=== PATIENT | female | born 1980 | race Caucasian/White ===

== ENCOUNTER → 2016-10-28 | Outpatient (CLI) | payer BC ==
[~2016-10-28] MED LIST: CHOL100010 PO; SPR28 PO
== END | disposition home or self-care (01) ==
LOC: C.PAPS 10:45
PROVIDERS: ATTEND Obstetrics & Gynecology
DX: Z01.411 Encounter for gynecological examination (general) (routine) with abnormal findings (principal); R87.610 Atypical squamous cells of undetermined significance on cytologic smear of cervix (ASC-US); Z87.42 Personal history of other diseases of the female genital tract

== ENCOUNTER 2017-10-14 08:54 | Emergency (ER) | payer BC, OTHER ==
[~2017-10-14] VITALS: Ht 157.5 cm; Wt 65.0 kg
[~2017-10-14 08:54] MED LIST changes: -SPR28 PO
[2017-10-14 08:59] VITALS: TEMP 37; Ht 157.5 cm; Wt 65.0 kg
[2017-10-14] MEDS ORDERED: SODIUM CHLORIDE 0.9% 500ML 500 ML IV STA (09:08)
[2017-10-14] MEDS ORDERED: DiphenhydrAMINE HCL 50 MG/ML VIAL IV STA (09:08)
[2017-10-14] MEDS ORDERED: KETOROLAC TROMETHAMINE 30 MG/ML VIAL IV STA (09:08)
[2017-10-14 09:27] LABS: BASO % 0.3 %; BASO ABS # 0.02 K/uL (0-0.2); EOS % 1.6 %; HEMOGLOBIN 13.8 g/dL (12.0-16.0); IG# 0.01 K/uL (0.00-0.02); LYMPH % 27.9 %; LYMPH ABS # 1.79 K/uL (1.2-3.4); MEAN CELL VOLUME 88.4 fL (80-100); MEAN CORPUSCULAR HEMOGLOBIN 31.3 pg (25-34); MEAN CORPUSCULAR HGB CONC 35.4 g/dl (32-36); MEAN PLATELET VOLUME 9.7 fL (7.4-10.4); MONO % 7.8 %; NEUT % 62.2 %; PLATELET COUNT 228 K/uL (130-400); RED CELL DISTRIBUTION WIDTH CV 12.6 % (11.5-14.5); RED CELL DISTRIBUTION WIDTH SD 40.4 fL (36.4-46.3); WHITE BLOOD COUNT 6.42 K/uL (4.8-10.8)
[2017-10-14 09:41] LABS: CALCIUM 9.4 mg/dl (8.5-10.1); CREATININE 0.8 mg/dl (0.60-1.20); POTASSIUM 3.8 mmol/L (3.5-5.1)
--- NOTE | 2017-10-14 10:08 | DIAGNOSTIC IMAGING REPORT ---
CT SCAN OF THE BRAIN WITHOUT IV CONTRAST CLINICAL HISTORY: Headache. COMPARISON STUDY: MRI of the brain dated 04/19/2015. TECHNIQUE: Unenhanced axial CT scan of the brain is performed from the vertex to the skull base. A dose lowering technique was utilized adhering to the principles of ALARA. CT DOSE: 788.63 mGycm FINDINGS: Brain parenchyma: The brain parenchyma is normal in appearance. There is no hemorrhage, mass effect, or evidence of acute territorial ischemia by CT criteria. Cruz-white matter is preserved. No extra-axial fluid collection is seen. Ventricles, sulci, cisterns: Normal in configuration. Intracranial vasculature: The visualized intracranial vasculature at the skull base is normal in appearance. Calvarium: Unremarkable. Sinuses and mastoids: The visualized paranasal sinuses are clear. There is a right mastoid effusion. The left mastoid air cells are well pneumatized. Orbits: The bony orbits are grossly intact. IMPRESSION: No acute intracranial abnormality. Electronically signed by: Hemant Byrd M.D. 10/14/2017 10:07 AM Dictated Date/Time: 10/14/2017 10:05 AM
[2017-10-14 10:17] VITALS: BP 103/67; PULSE 74; O2SAT 100
[2017-10-14] MEDS ORDERED: SPR28 PO (10:31)
--- NOTE | 2017-10-14 14:23 | EMERGENCY ROOM VISIT NOTE ---
History Report prepared by Alondra: Rito Lema Under the Supervision of: Dr. Paulie Franklin D.O. First contact with patient: 08:57 Stated Complaint: MIGRAINE History of Present Illness The patient is a 37 year old female who presents to the Emergency Room with complaints of worsening dizziness and a headache. The patient experienced the dizziness for the first time two days ago, and she describes the sensation as the "room spinning." The dizziness is worsened with movement, and seems to be improved by looking downward. She has a "dull" pain diffusely across the back of her head, that is accompanied by intermittent "sharp and stabbing" pains. The intermittent sharp and stabbing pains are a 10/10 in severity. She denies any vision changes or new weakness, aside from her chronic MS. this is not the worst headache of her life. Sharp stabbing portion of her headache when it does come does feel like her migraines. Dizziness is only present with a sharp stabbing pain. She does have a history of migraines, but this is different than her usual presentation. Her migraine pain is usually behind her eyes. The severity of intermittent sharp and stabbing pains are consistent with her past episodes. The patient denies any other fevers, chest pain, shortness of breath, nausea, vomiting, diarrhea, pain with urination, and melena. Source of History: patient Onset: Two days ago Position: head Symptom Intensity: 10/10 Quality: sharp, stabbing, dull, other (Dizziness) Timing: constant (dull headache), intermittent (sharp and stabbing headache) , worsening (dizziness) Modifying Factors (Worsening): movement (dizziness) Modifying Factors (Relieving): other (Looking downward) Associated Symptoms: No fevers, No weakness Note: Negative vision symptoms Review of Systems See HPI for pertinent positives & negatives. A total of 10 systems reviewed and were otherwise negative. Past Medical & Surgical Medical Problems: (1) MS (multiple sclerosis) Family History Cancer Diabetes mellitus Heart disease Hypertension Social History Smoking Status: Never Smoker Drug Use: none Marital Status: Housing Status: lives with family Occupation Status: unemployed Current/Historical Medications Scheduled Ethinyl Estrad/Norgestimate (Sprintec 28), 1 TAB PO DAILY Allergies Coded Allergies: Amoxicillin (Verified Adverse Reaction, Intermediate, N/V, 10/14/17) Clavulanic Acid (Verified Adverse Reaction, Intermediate, N/V, 10/14/17) Glatiramer (Verified Adverse Reaction, Intermediate, SYNCOPE, 10/14/17) Mannitol (Verified Adverse Reaction, Intermediate, SYNCOPE, 10/14/17) Physical Exam Vital Signs Date Time Temp Pulse Resp B/P (MAP) Pulse Ox O2 Delivery O2 Flow Rate FiO2 10/14/17 10:17 74 18 103/67 100 10/14/17 08:59 72 10/14/17 08:59 37.0 67 20 136/86 100 Physical Exam GENERAL: Sitting up in bed, alert, well appearing, well nourished, no distress, non-toxic EYE EXAM: normal conjunctiva. PERRL and EOM's intact. No nystagmus OROPHARYNX: no exudate, no erythema, lips, buccal mucosa, and tongue normal and mucous membranes are moist NECK: supple, no nuchal rigidity, no adenopathy, non-tender LUNGS: Clear to auscultation. Normal chest wall mechanics HEART: no murmurs, S1 normal and S2 normal ABDOMEN: abdomen soft, non-tender, normo-active bowel sounds, no masses, no rebound or guarding. BACK: Back is symmetrical on inspection and there is no deformity, no midline tenderness, no CVA tenderness. SKIN: no rashes and no bruising UPPER EXTREMITIES: upper extremities are grossly normal. LOWER EXTREMITIES: No pitting edema. NEURO EXAM: Normal sensorium, cranial nerves II-XII grossly intact, normal speech, no gross weakness of arms, no gross weakness of legs. No drift. Finger to nose intact. Gross sensation intact. No deficit on the left side, right side is weak with grasp, flexion/extension of the upper extremity is diminished, unable to dorsal flex right foot, all old per patient secondary to MS. Medical Decision & Procedures ER Provider Diagnostic Interpretation: Radiology results as stated below per my review and the radiologist's interpretation: CT SCAN OF THE BRAIN WITHOUT IV CONTRAST CLINICAL HISTORY: Headache. COMPARISON STUDY: MRI of the brain dated 04/19/2015. TECHNIQUE: Unenhanced axial CT scan of the brain is performed from the vertex to the skull base. A dose lowering technique was utilized adhering to the principles of ALARA. CT DOSE: 788.63 mGycm FINDINGS: Brain parenchyma: The brain parenchyma is normal in appearance. There is no hemorrhage, mass effect, or evidence of acute territorial ischemia by CT criteria. Cruz-white matter is preserved. No extra-axial fluid collection is seen. Ventricles, sulci, cisterns: Normal in configuration. Intracranial vasculature: The visualized intracranial vasculature at the skull base is normal in appearance. Calvarium: Unremarkable. Sinuses and mastoids: The visualized paranasal sinuses are clear. There is a right mastoid effusion. The left mastoid air cells are well pneumatized. Orbits: The bony orbits are grossly intact. IMPRESSION: No acute intracranial abnormality. Electronically signed by: Hemant Byrd M.D. 10/14/2017 10:07 AM Dictated Date/Time: 10/14/2017 10:05 AM Laboratory Results 10/14/17 09:20 Red Blood Count 4.41, Mean Corpuscular Volume 88.4, Mean Corpuscular Hemoglobin 31.3, Mean Corpuscular Hemoglobin Concent 35.4, Mean Platelet Volume 9.7, Neutrophils (%) (Auto) 62.2, Lymphocytes (%) (Auto) 27.9, Monocytes (%) (Auto) 7.8, Eosinophils (%) (Auto) 1.6, Basophils (%) (Auto) 0.3, Neutrophils # (Auto) 4.00, Lymphocytes # (Auto) 1.79, Monocytes # (Auto) 0.50, Eosinophils # (Auto) 0.10, Basophils # (Auto) 0.02 10/14/17 09:20 Test 10/14/17 09:20 White Blood Count 6.42 K/uL (4.8-10.8) Red Blood Count 4.41 M/uL (4.2-5.4) Hemoglobin 13.8 g/dL (12.0-16.0) Hematocrit 39.0 % (37-47) Mean Corpuscular Volume 88.4 fL (80-100) Mean Corpuscular Hemoglobin 31.3 pg (25-34) Mean Corpuscular Hemoglobin Concent 35.4 g/dl (32-36) Platelet Count 228 K/uL (130-400) Mean Platelet Volume 9.7 fL (7.4-10.4) Neutrophils (%) (Auto) 62.2 % Lymphocytes (%) (Auto) 27.9 % Monocytes (%) (Auto) 7.8 % Eosinophils (%) (Auto) 1.6 % Basophils (%) (Auto) 0.3 % Neutrophils # (Auto) 4.00 K/uL (1.4-6.5) Lymphocytes # (Auto) 1.79 K/uL (1.2-3.4) Monocytes # (Auto) 0.50 K/uL (0.11-0.59) Eosinophils # (Auto) 0.10 K/uL (0-0.5) Basophils # (Auto) 0.02 K/uL (0-0.2) RDW Standard Deviation 40.4 fL (36.4-46.3) RDW Coefficient of Variation 12.6 % (11.5-14.5) Immature Granulocyte % (Auto) 0.2 % Immature Granulocyte # (Auto) 0.01 K/uL (0.00-0.02) Anion Gap 6.0 mmol/L (3-11) Est Creatinine Clear Calc Drug Dose 85.2 ml/min Estimated GFR () 109.2 Estimated GFR (Non- 94.2 BUN/Creatinine Ratio 16.4 (10-20) Calcium Level 9.4 mg/dl (8.5-10.1) Laboratory results per my review. Medications Administered Medications (Trade) Dose Ordered Sig/Tina Route Start Time Stop Time Status Last Admin Dose Admin Sodium Chloride 500 ml @ 999 mls/hr Q31M STAT IV 10/14/17 09:08 10/14/17 09:38 DC 10/14/17 09:23 999 MLS/HR Ketorolac Tromethamine (Toradol Inj) 30 mg NOW STAT IV 10/14/17 09:08 10/14/17 09:10 DC 10/14/17 09:23 30 MG Diphenhydramine HCl (Benadryl Inj) 50 mg NOW STAT IV 10/14/17 09:08 10/14/17 09:11 DC 10/14/17 09:24 50 MG ED Course ED COURSE: Vital signs were reviewed and showed 0858 The patients medical record was reviewed The above diagnostic studies were performed and reviewed. ED treatments and interventions as stated above. 0858: The patient was evaluated in room A10. A complete history and physical examination was performed. 0908: Ordered Benadryl 50 mg IV, Toradol 30 mg IV, Sodium Chloride 500 mL @ 999 mL/hr IV. 1034: Upon reevaluation, the patient is resting comfortably.I discussed my findings with the patient and she understands and agrees with the treatment plan. Based on the patients age, coexisting illnesses, exam and lab findings the decision to treat as an outpatient was made. The patient remained stable while under my care. The patient appeared well at the time of discharge. Medical Decision Differential Diagnosis includes but is not limited to headache, tension headache , cluster headache, migraine, subarachnoid hemorrhage, meningitis, mass, central venous thrombus, concussion, trauma and epidural/subdural hemorrhage. Patient is a 37-year-old female that presents to ER for headache. She has been having headaches for the past 3 days. She is a sharp stabbing component which comes and goes. Constant dull headache. This is not the worst headache of her life. No fevers. No signs of meningitis or encephalitis. CT head was negative. CBC along with BMP was unremarkable. Patient was given IV fluids, Toradol, Benadryl and felt significantly better. There is no dizziness. She is again neurologically at baseline. She is discharged follow-up with PCP as an outpatient. Do not believe that this is a stroke or an MS flare at this time. Discussed with Pt concerning signs and symptoms to watch out for. Pt was instructed to follow up with their PCP and discussed with the patient their option to return to the ED at anytime for persistent or worsening symptoms. The appropriate anticipatory guidance and out-patient management, including indications for return to the emergency department, were explained at length to the patient and understood. Medication Reconcilliation Current Medication List: was personally reviewed by me Blood Pressure Screening Patient's blood pressure: Elevated blood pressure Blood pressure disposition: Elevated BP felt to be situational Impression Primary Impression: Headache Scribe Attestation The scribe's documentation has been prepared under my direction and personally reviewed by me in its entirety. I confirm that the note above accurately reflects all work, treatment, procedures, and medical decision making performed by me. Departure Information Dispostion Home / Self-Care Referrals Jovani Almeida MD (PCP) Forms HOME CARE DOCUMENTATION FORM, IMPORTANT VISIT INFORMATION Patient Instructions [facility] Additional Instructions Please follow up with your primary care doctor with in the next 24 hours. Any worsening of your symptoms, please return to the ED immediately. This includes any fevers greater than 100.4, worsening pain, chest pain, shortness breath, persistent nausea, vomiting, unable to eat or drink, or any other concerning signs or symptoms from your standpoint. Absolutely no driving for the remainder the day. Please discuss with your neurologist within the next 1-2 days. Problem Qualifiers Primary Impression: Headache Headache type: unspecified Headache chronicity pattern: acute headache Intractability: not intractable Qualified Codes: R51 - Headache
== END 2017-10-14 10:50 | disposition home or self-care (01) ==
LOC: EDBD 08:54 → C.EDA 08:57
DX: R51 Headache (principal); G35 Multiple sclerosis; Z83.3 Family history of diabetes mellitus; Z82.49 Family history of ischemic heart disease and other diseases of the circulatory system; Z88.8 Allergy status to other drugs, medicaments and biological substances

== ENCOUNTER → 2018-02-08 | Outpatient (CLI) | payer OTHER ==
[~2018-02-08] MED LIST changes: -CHOL100010 PO; +SPR28 PO
== END | disposition home or self-care (01) ==
LOC: C.PAPS 11:36
PROVIDERS: ATTEND Obstetrics & Gynecology
DX: Z01.411 Encounter for gynecological examination (general) (routine) with abnormal findings (principal); R87.610 Atypical squamous cells of undetermined significance on cytologic smear of cervix (ASC-US)